=== PATIENT | male | born 1950 | race Caucasian/White ===

== ENCOUNTER 2018-10-03 07:58 | Observation (INO) | payer MEDICARE, BC ==
--- NOTE | 2018-09-21 13:07 | HP ---
Amended report to enter cosigning physician. PREOPERATIVE HISTORY AND PHYSICAL EXAMINATION: DATE OF ADMISSION/SURGERY: 10/03/18 ATTENDING PHYSICIAN: Dr. Rhina Lowe* (dictated by LEIGHTON Amezcua). CHIEF COMPLAINT: Left knee pain. SURGERY: Left total knee arthroplasty. HISTORY OF PRESENT ILLNESS: Mr. Baum is a 68-year-old male with complaints of left knee pain. His plain films revealed significant osteoarthritis. He has failed conservative management and elected to proceed with left total knee arthroplasty on 10/03/[address] Lowe. PAST MEDICAL HISTORY: Significant for diabetes, hypertension, heart disease, hypercholesterolemia, osteoarthritis, sciatica, chronic back pain, and fibromyalgia. PAST SURGICAL HISTORY: He has had bilateral rotator cuff surgery, bilateral knee arthroscopy, right total knee arthroplasty in May [address] Doshi, prostate surgery, and cervical diskectomy infusion at [facility]. MEDICATIONS: 1. Cholecalciferol 1000 units daily. 2. Citalopram 20 mg p.o. daily. 3. Clopidogrel bisulfate 75 mg p.o. daily. 4. Amlodipine 10 mg p.o. daily. 5. Multivitamin daily. 6. Fenofibrate 160 mg p.o. daily. 7. Finasteride 5 mg p.o. daily. 8. Furosemide 40 mg p.o. every day. 9. Isosorbide ER 30 mg 1 p.o. daily. 10. Lisinopril 40 mg p.o. daily. 11. Metoprolol 25 mg p.o. daily. 12. Norvasc 5 mg daily. 13. Omeprazole 40 mg daily. 14. Pentoxifylline ER 400 mg 1 p.o. q.8 hours. 15. Pregabalin 100 mg tablets t.i.d. 16. Calcium tablet 10 mg p.o. q.h.s. 17. Soya protein shake daily. 18. Spironolactone 25 mg p.o. daily. 19. Tramadol ER daily. 20. Vitamin C 500 mg p.o. daily. ALLERGIES: LATEX and ADHESIVE TAPE. FAMILY HISTORY: Brother with a history of prostate cancer and palate oral cancer. Father with a history of prostate cancer and diabetes. Mother with a history of brain tumor. SOCIAL HISTORY: The patient lives with his . 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 He does not use tobacco or recreational drugs. He minimally drinks alcohol. PHYSICAL EXAMINATION GENERAL: He is alert and oriented x2 in no acute distress, pleasant and cooperative. VITAL SIGNS: He is 5 feet 9 inches tall, weight 216, pulse 52, BP 124/68. HEENT: PERRLA. LUNGS: Clear to auscultation without wheeze. HEART: Regular rate and rhythm. No murmur auscultated. ABDOMEN: Nontender and soft. Normoactive bowel sounds x4. MUSCULOSKELETAL: The left knee reveals the skin to be intact. There are no open lesions or excoriations. He walks with a mild antalgic gait. Range of motion 10 degrees to 120 degrees flexion. He has 5/5 ankle dorsiflexion. He has full sensation. There is no varus or valgus instability. His sensation is intact distally. ASSESSMENT AND PLAN: Mr. Baum is a 68-year-old male with advanced osteoarthritis of the left knee. He has failed conservative management and elected to proceed with surgical intervention. He is scheduled for surgery with Dr. Lowe on 10/03/18. Risks and benefits have been discussed by Dr. Lowe today and all of his questions were answered. He will follow up with Dr. Lowe roughly 2 weeks after surgery. LEIGHTON AMEZCUA [id number]/CPS #: [id number] MTDD
[~2018-10-03 07:58] MED LIST: Buffered Lidocaine 1% SYRIN* 1 ML/SYRINGE INTRADERM ONE; Lactated Ringers 1000 ML Bag* 1,000 ML IV SCH
--- OUTSIDE RECORDS SUMMARY | 2018-10-03 08:03 | XMS REPORT | Continuity of Care Document ---
:1950 External Reference #:[id number] Author Name LEIGHTON Patterson Address [address] , [place] [address] Care Team Providers Name Role Phone Bob Henry MD Primary Care Physician Unavailable Payers Date Identification Numbers Payment Provider Subscriber Policy Number: [id number] Medicare Leo Baum PayID: [id number] [address] [place] [address] Policy Number: [id number] [facility] Leo Baum PayID: [id number] [address] [place] [address] Problems Active Problems Provider Date Arthroplasty of knee Rhina Lowe M.D. Onset: 08/30/2018 Localized, primary osteoarthritis Rhina Lowe M.D. Onset: 08/30/2018 Family History Date Family Member(s) Observation Comments General Diabetes General Heart Disease General Hypertension General Cancer Social History Type Date Description Comments Sex Unknown Lives With Spouse Occupation Retired ETOH Use Occasionally consumes alcohol Tobacco Use Start: Unknown Patient has never smoked Smoking Status Reviewed: 08/30/18 Patient has never smoked Exercise Type/Frequency Exercises sporadically Allergies, Adverse Reactions, Alerts Active Allergies Reaction Severity Comments Date Tape 08/30/2018 Latex 08/30/2018 Medications Active Medications SIG Qnty Indications Ordering Date Provider Vitamin C 1 by mouth every Unknown 500mg Chewtabs day V-Go 20 Kit Unknown Tramadol HCL ER Unknown (Biphasic) 300mg Tablets ER 24HR Spironolactone 1 by mouth every Unknown 25mg Tablets day Soy Protein Shake Unknown Powder Rosuvastatin Calcium take 1 tablet by Unknown 10mg mouth every Tablets evening Pregabalin 100MG Caplets, Unknown Powder Three Times Daily Pentoxifylline ER 1 tab by mouth Unknown 400mg every 8 hours. Tablets ER mdd 3 Omeprazole 1 by mouth every Unknown 40mg Capsules DR day Norvasc 1 by mouth every Unknown 5mg Tablets day Metoprolol Succinate ER 1 by mouth every Unknown 25mg day Tablets ER 24HR Lisinopril 1 by mouth every Unknown 40mg Tablets day Isosorbide Mononitrate 1 by mouth every Unknown ER day 30mg Tablets ER 24HR Insulin Unknown Furosemide 1 by mouth every Unknown 40mg Tablets day Finasteride 1 by mouth every Unknown 5mg Tablets day Fenofibrate 1 by mouth every Unknown 160mg Tablets day Ezetimibe take one tablet Unknown 10mg Tablets daily, use generic Multivitamin Unknown Colesevelam HCL take 3 tablets by Unknown 625mg Tablets mouth twice a day for diabetes control Clopidogrel Bisulfate 1 by mouth every Unknown 75mg day Tablets Citalopram Hydrobromide 1 by mouth every Unknown 20mg day Tablets Cholecalciferol 1000units Unknown Vital Signs Date Vital Result Comment 08/30/2018 11:53am Height 69 inches 5'9" Weight 221.00 lb Heart Rate 60 /min BP Systolic 170 mmHg BP Diastolic 72 mmHg Pain Level 10 BMI (Body Mass Index) 32.6 kg/m2 Results Test Date Facility Test Result H/L Range Note Laboratory test 08/30/2018 [facility] Hemoglobin A1c 8.0 % High 4.0-5.[address] ([facility]co HGB) [place] [address] [phone] Therapeutic target for the treatment of diabetes mellitus patients is <7% HBA1C, and in selective patients <6.0%. Please refer to [place] [employer] diabetic care guidelines for further information. Encounters Type Date Location Provider Dx Diagnosis Office Visit 08/30/2018 [facility] Lowe, M25.561 Pain in right 11:[facility]a [facility] M25.562 Pain in left knee M25.461 Effusion, right knee M25.462 Effusion, left knee M17.12 Unilateral primary osteoarthritis, left knee S83.411A Sprain of medial collateral ligament of right knee, init Z96.651 Presence of right artificial knee joint Plan of Treatment Future Appointment(s):10/03/2018 9:30 am - Aditya Fitzpatrick PA-C at [facility].09/20/2018 11:15 am - Rhina Lowe M.D. at [facility].10/03/2018 9:30 am - LEIGHTON Patterson at [facility].10/03/2018 9:30 am - Rhina Lowe M.D. at [facility].08/30/2018 - Rhina Lowe M.D.M25.561 Pain in right kneeFollow up:Follow up: 7-10 days before [id number] Pain in left kneeM25.461 Effusion, right kneeM25.462 Effusion, left kneeM17.12 Unilateral primary osteoarthritis, left kneeS83.411A Sprain of medial collateral ligament of right knee, ogwqbrmI17.651 Presence of right artificial knee joint
--- OUTSIDE RECORDS SUMMARY | 2018-10-03 08:03 | XMS REPORT | Continuity of Care Document ---
:1950 External Reference #:[id number] Author Name LEIGHTON Patterson Address [address] , [place] [address] Care Team Providers Name Role Phone Bob Henry MD Primary Care Physician Unavailable Payers Date Identification Numbers Payment Provider Subscriber Policy Number: [id number] Medicare Leo Baum PayID: [id number] [address] [place] [address] Policy Number: [id number] [facility] Leo Baum PayID: [id number] [address] [place] [address] Problems Active Problems Provider Date Arthroplasty of [...] Result H/L Range Note Laboratory test 08/30/2018 [facility] Hemoglobin A1c 8.0 % High 4.0-5.[address] (Glyco HGB) [place] [address] [phone] Therapeutic target for the treatment of diabetes mellitus patients is <7% HBA1C, and in selective patients <6.0%. Please refer to [place] Diabetes Association diabetic care guidelines for further [...] Aditya Fitzpatrick PA-C at [facility].09/20/2018 11:15 am - Rhina Lowe M.D. at [facility].10/03/2018 9:30 am - LEIGHTON Patterson at [facility].10/03/2018 9:30 am - Rhina Lowe M.D. at [facility].08/30/2018 - Rhina Lowe M.D.M25.561 Pain in right kneeFollow up:Follow up: 7-10 days before eorikszG02.562 Pain in left kneeM25.461 Effusion, right kneeM25.462 Effusion, left kneeM17.12 Unilateral primary osteoarthritis, left kneeS83.411A Sprain of medial collateral ligament of right knee, isrkkwvV00.651 Presence of right artificial knee joint
--- OUTSIDE RECORDS SUMMARY | 2018-10-03 08:03 | XMS REPORT | Continuity of Care Document ---
:1950 External Reference #:[id number] Author Name Maya Jo Care Team Providers Name Role Phone Bob Henry MD Primary Care Physician Unavailable Payers Date Identification Numbers Payment Provider Subscriber Policy Number: [id number] Medicare Leo Baum PayID: [id number] [address] [place] [address] Policy Number: [id number] [facility] Leo Baum PayID: [id number] [address] [place] [address] Problems Active Problems Provider Date Arthroplasty of [...] Patient has never smoked Smoking Status Reviewed: 09/20/18 Patient has never smoked Exercise Type/Frequency Exercises [...] Unknown Vital Signs Date Vital Result Comment 09/20/2018 11:04am Height 69 inches 5'9" Weight 216.00 lb Heart Rate 52 /min BP Systolic 124 mmHg BP Diastolic 68 mmHg BMI (Body Mass Index) 31.9 kg/m2 08/30/2018 11:53am Height 69 inches 5'9" Weight 221.00 lb Heart Rate 60 /min BP Systolic 170 mmHg BP Diastolic 72 mmHg Pain Level 10 BMI (Body Mass Index) 32.6 kg/m2 Results Test Date Facility Test Result H/L Range Note Laboratory test 08/30/2018 [facility] Hemoglobin A1c 8.0 % High 4.0-5.6 [address] (Glyco HGB) [place] [address] [phone] Therapeutic target for the treatment of diabetes mellitus patients is <7% HBA1C, and in selective patients <6.0%. Please refer to [place] Diabetes [employer] diabetic care guidelines for further information. Encounters Type Date Location Provider Dx Diagnosis Office Visit 08/30/2018 [facility] Rhina Mynor, M25.561 Pain in right 11:00a [facility] knee M25.562 Pain in left knee M25.461 Effusion, right knee M25.462 Effusion, left knee M17.12 Unilateral primary osteoarthritis, left knee S83.411A Sprain of medial collateral ligament of right knee, init Z96.651 Presence of right artificial knee joint Plan of Treatment Future Appointment(s):10/16/2018 1:15 pm - Rhina Lowe M.D. at [facility]10/03/2018 11:30 am - Aditya Fitzpatrick PA-C at [facility]/03/2018 11:30 am - LEIGHTON Patterson at [facility]/2018 11:30 am - Rhina Lowe M.D. at [facility]
[2018-10-03] MEDS ORDERED: ceFAZolin 2 GM PREMIX in ORs 2 GM/50 ML BAG IVPB ONE (08:13)
[2018-10-03] MEDS ORDERED: Buffered Lidocaine 1% SYRIN* 1 ML/SYRINGE INTRADERM ONE (08:13)
[2018-10-03] MEDS ORDERED: Insulin REGULAR(*) 1 UNITS UNIT ONE ×3 (08:51→11:06)
[2018-10-03] MEDS ORDERED: Propofol* 10 MG/ML 20 ML BTL ONE ×2 (09:00→12:57)
[2018-10-03] MEDS ORDERED: Lidocaine 2% PF * 5 ML VIAL ONE (09:00)
[2018-10-03] MEDS ORDERED: Midazolam* 1 MG/ML 2 ML VIAL (2 MG) ONE (09:01)
[2018-10-03] MEDS ORDERED: fentaNYL* 50 MCG/ML 2 ML VIAL (100 MCG VIAL) ONE (09:01)
[2018-10-03] MEDS ORDERED: Bupivacaine 0.5% SDV PF* 30ML VIAL ONE (09:01)
[2018-10-03] MEDS ORDERED: Dexmedetomidine* 200 MCG/2 ML 2 ML VIAL ONE (09:02)
[2018-10-03] MEDS ORDERED: KETAMINE HCL* 50 MG/ML 10 ML VIAL ONE (09:02)
[2018-10-03] MEDS ORDERED: Propofol* 500 MG/50 ML BTL ONE (09:02)
[2018-10-03] MEDS ORDERED: ROPIVACAINE 5 MG/ML 30 ML BTL (0.5%) ONE ×2 (09:07→10:49)
[2018-10-03] MEDS ORDERED: Dexamethasone IV* 4 MG/ML 1 ML (4 MG) ONE (12:07)
[2018-10-03] MEDS ORDERED: EPHEDrine (Pressors)* 50 MG/ML VIAL ONE (12:12)
[2018-10-03] MEDS ORDERED: Labetalol IV* 5 MG/ML 20 ML VIAL ONE ×2 (13:02→16:38)
[2018-10-03] MEDS ORDERED: Naloxone* 0.4 MG/ML 1 ML VIAL IV PRN (13:24)
[2018-10-03] MEDS ORDERED: Ondansetron INJ* 2 MG/ML VIAL IV PRN ×2 (13:24→13:53)
[2018-10-03] MEDS ORDERED: Acetaminophen IV 1GM/100ML * 1,000 MG/100 ML VIAL IVPB ONE (13:24)
[2018-10-03] MEDS ORDERED: Ketorolac INJ* 30 MG/ML 1 ML VIAL IV PRN (13:24)
[2018-10-03] MEDS ORDERED: traMADol TAB* 50 MG PO PRN (13:53)
[2018-10-03] MEDS ORDERED: Ondansetron TAB* 4 MG PO PRN (13:53)
[2018-10-03] MEDS ORDERED: oxyCODONE/Acetamin 5/325 MG* TAB PO PRN (13:53)
[2018-10-03] MEDS ORDERED: Bisacodyl SUPP* 10 MG SUPP PR PRN (13:53)
[2018-10-03] MEDS ORDERED: Polyethylene Glycol 3350* 17 GM PACKET PO PRN (13:53)
[2018-10-03] MEDS ORDERED: diPHENhydraMINE IV* 50 MG/ML 1 ml VIAL (BENADRYL) IV PRN (13:53)
[2018-10-03] MEDS ORDERED: Cyclobenzaprine TAB* 10 MG PO PRN (13:53)
[2018-10-03] MEDS ORDERED: Magnesium Hydroxide LIQ* 30 ML UDC PO PRN (13:53)
[2018-10-03] MEDS ORDERED: Acetaminophen TAB* 325 MG PO SCH (14:00)
[2018-10-03] MEDS ORDERED: Acetaminophen IV 1GM/100ML * 100 ML ONE (14:17)
[2018-10-03] MEDS ORDERED: Ketorolac INJ* 30 MG/ML 1 ML VIAL ONE (14:23)
[2018-10-03] MEDS ORDERED: HYDROmorphone INJ1* 1 MG/ML SYRINGE ONE ×2 (14:23→14:59)
[2018-10-03] MEDS: HYDROmorphone INJ1* 1 MG/ML SYRINGE IV PRN ×5 (14:24→14:49)
[2018-10-03] MEDS ORDERED: Lisinopril TAB* 10 MG PO ONE (15:15)
[2018-10-03] MEDS ORDERED: amLODIPine TAB* 5 MG PO ONE (15:15)
--- NOTE | 2018-10-03 15:56 | OP ---
Operative Report - Blank - Operative Report Date of Operation: 10/03/18 Note: IZA HERNÁNDEZ 1950 Date of Surgery: 10/03/18 Rhina Lowe MD Pipe Jeeper: Latisha MANZANARES did help throughout the procedure with preparation of the knee, wound retraction, manipulation of the knee, and wound closure. Anesthesiologist: Morteza El MD Anesthesia Type: Spinal Preoperative Diagnosis: Left severe degenerative osteoarthritis of the knee Postoperative Diagnosis: As above Procedure Performed: Left Total Knee Arthroplasty Tourniquet time: 54 minutes Complications: None Specimen: Bone and cartilage from the left knee joint sent to pathology. Hardware Used: Cemented Hernandez and Nephew total knee hardware was used - For the femur a size 6 left legion posterior stabilized femoral component, for the tibia a size 5 allie II tibial baseplate, for the insert a size 9mm 5-6 posterior stabilized articular polyethylene insert, and for the patella a size 32 3-peg all poly patella. Brief History/Indication: IZA HERNÁNDEZ was known in clinic and had a history of severe left knee pain and swelling. He failed conservative treatment with anti-inflammatories, pain pills, intra-articular injections and physical therapy. He elected to undergo left total knee arthroplasty due to continued pain and decreased quality of life. Radiographs showed severe end stage osteoarthritis of the knee with bone on bone contact. Informed consent was obtained from the patient. He understood the risks of surgery included but were not limited to: bleeding, infection, damage to nearby structures, intraoperative fracture, nerve palsy, failure of the hardware, early loosening, knee stiffness or loss of motion, anesthesia complications, stroke, heart attack , blood clot and . He wished to proceed. Intra-Operative Findings: Intraoperatively the patient was noted to have severe loss of cartilage in all 3 compartments of the knee. Description of the Procedure: IZA HERNÁNDEZ was identified in the preanesthesia unit. His left knee was marked as the correct operative side. Informed consent was signed and placed in the chart. The patient was taken to the operating room and placed under anesthesia without complication. A medina catheter was placed. A tourniquet was placed on the left thigh. The left lower extremity was prepped and draped in the usual sterile fashion. Preoperative time-out was made to correctly identify the patient, side and site. Appropriate intraoperative antibiotics were given within one hour of incision. Tourniquet was inflated. A midline incision was made and carried sharply down to the extensor mechanism. A new 10 blade was used to make a standard medial parapatellar arthrotomy. The patella was subluxed laterally. Electrocautery was used to dissect soft tissue off the superomedial tibia to the midsagittal plane. The knee was flexed up. The anterior horn of the lateral meniscus and the ACL were sharply incised. A drill was used to enter the distal femur. The intramedullary distal femoral cutting guide was pinned on the distal femur. The oscillating saw was used to make the distal femoral cut. The external rotation guide was pinned on the distal femur and the distal femur was sized to a size 6. The size 6 multi-cutting jig was pinned on the distal femur. The oscillating saw was used to make the appropriate 4 chamfer cuts. Next the PCL was completely released. The extramedullary tibial cutting guide was pinned on the proximal tibia and the oscillating saw was used to make the proximal tibial cut perpendicular to the mechanical axis of the tibia. The bone was carefully removed. The knee was brought out into full extension. The spacer block was placed and had excellent fit with the knee in full extension. The medial and lateral ligaments were well balanced. The flexion and extension gaps were well balanced. The knee was flexed up. Lamina reservations agent was placed both medially and laterally. Any remaining meniscus was removed with electrocautery. Curved osteotome was used to remove any posterior osteophytes. The tibial tray and drop danilo were placed and confirmed a satisfactory tibial cut. The size 6 left femoral trial was impacted onto the distal femur. This trial had excellent fit and stability. The box for the posterior stabilized implant was prepared using a box cut osteotome and a reamer. Next a tibial tray trial and 9 mm insert trial was placed. The knee was taken through a range of motion and had full extension to 130 degrees of flexion. Patellofemoral tracking was satisfactory. The patella was inverted and sized to a size 32. Three peg holes were drilled through the size 32 drill guide. The trial patella was placed and the knee was taken through a range of motion. There was satisfactory patellofemoral tracking. All trials were removed. The tibia was subluxed anteriorly and sized to a size 5. The proximal tibial was prepared with a size 5 keel punch. All bony cut surfaces were irrigated with sterile saline and dried. Final implants were cemented into place starting with the tibia, followed by the femur, and last the patella. A 9 mm insert trial was placed and the knee was brought into full extension. Tourniquet was turned down and the knee was copiously irrigated with sterile saline. Electrocautery was used to obtain meticulous hemostasis. Once the cement had fully cured, the insert trial was removed. Any excess cement was removed from around the hardware and capsule. Final insert chosen was a 9 mm posterior stabilized Allie II articular insert size 5-6. Stability of the insert was checked and noted to be stable. The extensor mechanism was closed using number 1 vicryls. The rest of the incision was closed in a layered fashion using 0 and 2-0 vicryls. The skin was closed using 3-0 nylon suture. Sterile xeroform, 4x4s and webril were used to cover the incision. Magen wrap and cold pack were used to cover the dressings. The patients anesthesia was reversed without difficulty. He was taken to the PACU in stable condition. Intended weight-bearing will be as tolerated.
[2018-10-03] MEDS ORDERED: oxyCODONE/Acetamin 5/325 MG* TAB ONE (17:41)
[2018-10-03] MEDS: Lactated Ringers 1000 ML Bag* 1,000 ML IV SCH (17:50)
[2018-10-03] MEDS: oxyCODONE/Acetamin 5/325 MG* TAB PO PRN (17:53)
[2018-10-03] MEDS ORDERED: Dextrose 50% Syringe 50 ML* 25 GM/50 ML SYRINGE IV PUSH PRN (17:57)
[2018-10-03] MEDS ORDERED: Insulin GLARGINE(*) 1 UNITS UNIT SUBCUT SCH ×2 (18:00→23:51)
[2018-10-03] MEDS ORDERED: Insulin GLARGINE(*) 1 UNITS UNIT ONE (18:20)
[2018-10-03] MEDS: ceFAZolin 1 GM ADVAN(*) 1 GM in NS 0.9% 50 ML* 50 ML IVPB SCH (19:13)
--- NOTE | 2018-10-03 19:52 | CONS ---
CONSULTATION REPORT: DATE OF CONSULT: 10/03/18 CONSULTING SERVICE: Orthopedic Surgery.* CHIEF COMPLAINT: Left knee pain. HISTORY OF PRESENT ILLNESS: This is a 68-year-old man with history of end- stage osteoarthritis of his left knee who underwent an elective left total knee arthroplasty today with Dr. Lowe. We were asked to consult for diabetes, hypertension, coronary disease, chronic kidney disease, and obstructive sleep apnea. Leo feels well postoperatively. He has some pain in the left knee, but denies chest pain, shortness of breath, palpitations, nausea, vomiting, constipation, or diarrhea. Regarding his diabetes, he uses a V-go insulin delivery system. Unfortunately, however, he follows with [facility] and does not know anything about how much insulin he uses in a day. He cannot recall the basal rate, the mealtime bolus, or his usual daily requirements. PAST MEDICAL HISTORY: Extensive coronary artery disease, he has stents to the mid LAD and RCA, the mid to distal RCA, and the distal RCA; hypertension; hyperlipidemia; fibromyalgia; and diabetic nephropathy. PAST SURGICAL HISTORY: Rotator cuff surgery, right knee arthroscopy and right knee arthroplasty, and cervical diskectomy. HOME MEDICATIONS: 1. Cholecalciferol 1000 units daily. 2. Citalopram 20 mg daily. 3. Plavix 75 mg daily. 4. Norvasc 10 mg daily. 5. Multivitamin daily. 6. Fenofibrate 160 mg daily. 7. Finasteride 5 mg daily. 8. Lasix 40 mg daily. 9. Imdur 30 mg daily. 10. Lisinopril 40 mg daily. 11. Metoprolol 25 mg daily. 12. Omeprazole 40 mg daily. 13. Pentoxifylline 400 mg q.8. 14. Lyrica 100 mg t.i.d. 15. Calcium 10 q.h.s. 16. Spironolactone 25 mg daily. 17. Tramadol daily as needed. 18. Vitamin C daily. 19. He uses Humulin U-500 via a V-Go system. He does not know the dose. ALLERGIES: LATEX. FAMILY HISTORY: His brother has prostate cancer, his dad has prostate cancer, and his mom has history of a brain tumor. SOCIAL HISTORY: He occasionally drinks beer. He does not smoke tobacco. REVIEW OF SYSTEMS: As per the HPI. Remainder of the 14-point review of systems is negative. PHYSICAL EXAM: Temperature 97.4, heart rate 68, respiratory rate 14, pulse ox 95% on room air, blood pressure 158/46. General: Alert, well-appearing man, who appears his stated age, in no distress. HEENT: Pupils are 3 mm bilaterally and reactive to light. Oral mucosa is dry. Neck: No JVP. No cervical adenopathy. Chest: he is in a regular rate and rhythm with a systolic murmur that is heard throughout and worse at the left upper sternal border. He has a continuous blood glucose monitor on his chest wall. He has an old anterior neck incision. His lungs are clear bilaterally. Abdomen is obese, soft, nontender, nondistended. No guarding or rebound. No CVA tenderness. Extremities: His left knee is in a Cryo unit. His distal sensation is intact. His DP and PT pulses are 2+ bilaterally. LABORATORY DATA: A oepoq-ch-lbra fingerstick was 299 this morning. ASSESSMENT AND PLAN: This is a 68-year-old man with history of severe coronary artery disease and type 2 diabetes, on Humulin U-500 via a V-Go pump, who presented to PACU today for an elective left TKA and we were asked to consult for medical management. 1. Type 2 diabetes. Unfortunately, he uses a U-500 Humulin insulin, but he does not know the rate that his V-Go delivers the insulin nor his basal dose nor his total daily dose nor his mealtime dose, so I am going to give him weight -based Lantus tonight and add fingersticks and lispro coverage. He has a continuous blood glucose monitor on his chest; will still use fingersticks for monitoring. 2. Coronary artery disease. Continue Plavix, metoprolol. I note that he is not on a statin and I cannot see documentation why from his cardiology notes. I will discuss this with him tomorrow. Continue Zetia and fenofibrate. This combination suggests he may have been statin intolerant. 3. Diabetic nephropathy. He does not know his baseline creatinine and we have no records. We will order morning labs. 4. Hypertension. His blood pressure is not at goal, but it was when he arrived to the hospital today, so I suspect this may be pain related. ICU has continued his home antihypertensives and I agree with this. 5. Postop day #0 left TKA. Please avoid NSAIDs given his renal dysfunction. Continue Percocet as needed and tramadol. His Macias catheter is out. 6. DVT prophylaxis. Eliquis 2.5mg BID. [id number]/[facility] #: [id number] MTDD
[2018-10-03] MEDS ORDERED: Insulin LISPRO* 1 UNITS UNIT SUBCUT ONE ×2 (21:27→23:49)
[2018-10-03] MEDS: Insulin LISPRO* 1 UNITS UNIT SUBCUT SCH (21:32)
[2018-10-03] MEDS: oxyCODONE TAB* 5 MG TAB PO PRN (21:38)
[2018-10-03] MEDS: Pregabalin CAP(*) 100 MG PO SCH (21:39)
[2018-10-03] MEDS: Docusate CAP* 100 MG PO SCH (21:39)
[2018-10-03] MEDS: Magnesium Hydroxide LIQ* 30 ML UDC PO SCH (21:39)
[2018-10-03] MEDS: Pantoprazole TAB * 40 MG TAB PO SCH (21:39)
[2018-10-03] MEDS: Atorvastatin* 20 MG TAB PO SCH (21:39)
[2018-10-03] MEDS: Terazosin CAP* 1 MG PO SCH (21:40)
[2018-10-03] MEDS: COLESEVELAM 625 MG PO SCH (21:43)
[2018-10-03] MEDS: Acetaminophen TAB* 325 MG PO SCH (21:44)
[2018-10-04] MEDS: oxyCODONE/Acetamin 5/325 MG* TAB PO PRN ×5 (00:11→21:08)
[2018-10-04] MEDS: ceFAZolin 1 GM ADVAN(*) 1 GM in NS 0.9% 50 ML* 50 ML IVPB SCH ×2 (03:29→11:24)
[2018-10-04] MEDS: oxyCODONE TAB* 5 MG TAB PO PRN ×4 (03:29→17:44)
[2018-10-04] MEDS: Lactated Ringers 1000 ML Bag* 1,000 ML IV SCH (03:30)
[2018-10-04] MEDS: Acetaminophen TAB* 325 MG PO SCH ×3 (05:48→21:11)
[2018-10-04 06:33] LABS: Hematocrit 31 % (42-52); Hemoglobin 10.7 g/dL (14.0-18.0); Mean Platelet Volume 11.4 fL (7.4-10.4); Platelet Count 193 10^3/uL (150-450)
[2018-10-04 06:49] LABS: BUN/Creatinine Ratio 26.6 (8-20); Calcium 8.6 mg/dL (8.6-10.3); EGFR African American 61.3 (>60); EGFR Non-African American 50.7 (>60); Potassium 4.8 mmol/L (3.5-5.0)
--- NOTE | 2018-10-04 07:52 | PN ---
Subjective Date of Service: 10/04/18 Interval History: Leo had uncontrolled blood sugars overnight. He feels good this morning. Pain is controlled, he had a small bowel movement last night, is eating breakfast. Objective Active Medications: Acetaminophen (Tylenol Tab*) 975 mg PO 0630,1430,2230 REPLACED BY [facility] Last Admin: 10/04/18 05:48 Dose: Not Given Amlodipine Besylate (Norvasc Tab*) 10 mg PO QAM REPLACED BY [facility] Apixaban (Eliquis*) 2.5 mg PO BID REPLACED BY [facility] Atorvastatin Calcium (Lipitor*) 20 mg PO BEDTIME REPLACED BY [facility]; Protocol Last Admin: 10/03/18 21:39 Dose: 20 mg Bisacodyl (Dulcolax Supp*) 10 mg [place] DAILY PRN PRN Reason: constipation Citalopram Hydrobromide (Celexa Tab*) 20 mg PO QAM REPLACED BY [facility] Clopidogrel Bisulfate (Plavix Tab*) 75 mg PO QAM REPLACED BY [facility] Colesevelam HCl (Welchol(Nf)) 1,875 mg PO BID REPLACED BY [facility] Last Admin: 10/03/18 21:43 Dose: Not Given Cyclobenzaprine HCl (Flexeril Tab*) 10 mg PO TID PRN PRN Reason: SPASMS Dextrose (D50w Syringe 50 Ml*) 12.5 gm IV PUSH .FOR FS < 60 - SS PRN PRN Reason: FS < 60 Diphenhydramine HCl (Benadryl Iv*) 12.5 mg IV Q6H PRN PRN Reason: PRURITIS Docusate Sodium (Colace Cap*) 100 mg PO BID REPLACED BY [facility] Last Admin: 10/03/18 21:39 Dose: 100 mg Ezetimibe (Zetia Tab*) 10 mg PO QAM REPLACED BY [facility] Fenofibrate (Tricor 160 Mg) 160 mg PO BEDTIME REPLACED BY [facility]; Protocol Last Admin: 10/03/18 21:43 Dose: 160 mg Finasteride (Proscar Tab*) 5 mg PO QAM REPLACED BY [facility] Furosemide (Lasix Tab*) 60 mg PO QAM REPLACED BY [facility] Cefazolin Sodium 1 gm/ Sodium (Chloride) 50 mls @ 200 mls/hr IVPB Q8H REPLACED BY [facility] Stop: 10/04/18 11:44 Last Admin: 10/04/18 03:29 Dose: 200 mls/hr Lactated Ringer's (Lactated Ringers 1000 Ml Bag*) 1,000 mls @ 100 mls/hr IV PER RATE REPLACED BY [facility] Last Admin: 10/04/18 03:30 Dose: 100 mls/hr Insulin Glargine (Lantus(*)) 50 units SUBCUT Q24HR@1800 REPLACED BY [facility] Last Admin: 10/04/18 00:08 Dose: 50 units Insulin Human Lispro (Humalog*) 0 units SUBCUT ACHS REPLACED BY [facility]; Protocol Last Admin: 10/03/18 21:32 Dose: Not Given Isosorbide Mononitrate (Imdur Er Tab*) 60 mg PO QAM REPLACED BY [facility] Lactulose (Lactulose*) 30 ml PO Q6H PRN PRN Reason: constipation Lisinopril (Prinivil Tab*) 40 mg PO QAM REPLACED BY [facility] Magnesium Hydroxide (Milk Of Magnesia Liq*) 30 ml PO BID REPLACED BY [facility] Last Admin: 10/03/18 21:39 Dose: Not Given Magnesium Hydroxide (Milk Of Magnesia Liq*) 30 ml PO Q6H PRN PRN Reason: constipation Metoprolol Succinate (Toprol Xl Tab*) 25 mg PO QAM REPLACED BY [facility] Morphine Sulfate (Morphine Inj (Syringe))*) 2 mg IV Q2H PRN PRN Reason: PAIN Ondansetron HCl (Zofran Inj*) 4 mg IV Q6H PRN PRN Reason: nausea Ondansetron HCl (Zofran Tab*) 4 mg PO Q6H PRN PRN Reason: NAUSEA Oxycodone HCl (Roxycodone Tab*) 10 mg PO Q4H PRN PRN Reason: SEVERE PAIN Last Admin: 10/04/18 03:29 Dose: 10 mg Oxycodone/Acetaminophen (Percocet 5/325 Tab*) 1 tab PO Q4H PRN PRN Reason: PAIN Oxycodone/Acetaminophen (Percocet 5/325 Tab*) 2 tab PO Q4H PRN PRN Reason: PAIN Last Admin: 10/04/18 05:43 Dose: 2 tab Pantoprazole Sodium (Protonix Tab*) 40 mg PO BEDTIME REPLACED BY [facility] Last Admin: 10/03/18 21:39 Dose: 40 mg Pentoxifylline (Trental Cr Tab*) 400 mg PO QAM REPLACED BY [facility] Polyethylene Glycol/Electrolytes (Miralax*) 17 gm PO DAILY PRN PRN Reason: Constipation Pregabalin (Lyrica Cap(*)) 100 mg PO BID REPLACED BY [facility] Last Admin: 10/03/18 21:39 Dose: 100 mg Terazosin HCl (Hytrin Cap*) 1 mg PO BEDTIME REPLACED BY [facility] Last Admin: 10/03/18 21:40 Dose: 1 mg Tramadol HCl (Ultram*) 50 mg PO Q6H PRN PRN Reason: PAIN Vital Signs - 8 hr 10/04/18 10/04/18 10/04/18 00:11 03:26 03:29 Temperature 98.0 F Pulse Rate 69 Respiratory 20 16 18 Rate Blood Pressure 137/44 (mmHg) O2 Sat by Pulse 98 Oximetry 10/04/18 05:43 Temperature Pulse Rate Respiratory 18 Rate Blood Pressure (mmHg) O2 Sat by Pulse Oximetry Oxygen Devices in Use Now: None Appearance: alert, well appearing Eyes: No Scleral Icterus Ears/Nose/Mouth/Throat: - - dry Neck: NL Appearance and Movements; NL JVP Respiratory: Symmetrical Chest Expansion and Respiratory Effort Cardiovascular: - - systolic murmur 1/6 LUSB Abdominal: NL Sounds; No Tenderness; No Distention Lymphatic: No Cervical Adenopathy Extremities: - - cryo unit left leg, sensation in tact, DT/PT pulses 2+ Skin: No Rash or Ulcers Neurological: Alert and Oriented x 3 Result Diagrams: 10/04/18 06:03 10/04/18 06:03 Assess/Plan/Problems-Billing Assessment: 68 yo man with history of diabetes, CAD, and CKD admitted for elective TKA - Patient Problems (1) Hyperglycemia Current Visit: Yes Status: Acute Code(s): R73.9 - HYPERGLYCEMIA, UNSPECIFIED SNOMED Code(s): 77953216 Comment: due to uncontrolled DM2 uses U-500 insulin at home and his dose is unknown, so weight based lantus was trialed last night with inadequate response will give NPH 30U (0.3U/kg) today with hopes he can go home tonight and go back to his V-go system (2) Coronary artery disease Current Visit: Yes Status: Acute Code(s): I25.10 - ATHSCL HEART DISEASE OF [place] CORONARY ARTERY W/O ANG PCTRS SNOMED Code(s): 94088387 Comment: continue plavix, BB, statin (3) HTN (hypertension) Current Visit: Yes Status: Acute Code(s): I10 - ESSENTIAL (PRIMARY) HYPERTENSION SNOMED Code(s): 35967859 Comment: at goal on home antihypertensives (4) Diabetic nephropathy Current Visit: Yes Status: Acute (5) Status post total knee replacement Current Visit: Yes Status: Acute Code(s): Z96.659 - PRESENCE OF UNSPECIFIED ARTIFICIAL KNEE JOINT SNOMED Code(s): 6548388831519 Comment: doing well, plan for PT today, pain controlled, [facility] out (6) DVT prophylaxis Current Visit: Yes Status: Acute Code(s): Z29.9 - ENCOUNTER FOR PROPHYLACTIC MEASURES, UNSPECIFIED SNOMED Code(s): 294493719 Comment: edgar
--- NOTE | 2018-10-04 08:12 | CONSULT ---
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 He is doing well overall and is eligible for early discharge. His insulin requirement is at least 120 units/day at home, but probably less than this in the post-op setting. IV insulin is usually indicated in patients with high-insulin requirements experiencing of stress hyperglycemia >300mg/dL. I recommend a trial of SQ insulin as below; if BG>350mg/dL this afternoon, then consider transfer to ICU for insulin drip, which can then be transitioned back to V-Go 20 insulin pump when available. PLAN: - START regular insulin scheduled 20 units TID-AC - hold if BG<90 or NPO - START regular insulin sliding scale 5 units per 50mg/dL for BG>200mg/dL - D/C lispro insulin - if patient remains hospitalized overnight, INCREASE glargine insulin to 70 units Q24h - check fingersticks TID-AC, HS and 3AM SUBJECTIVE: History of Present Illness: 68 yo M with long-standing T2DM, now admitted for elevated LTKA performed on 10/03/[address] Lowe. He was diagnosed with diabetes many years ago and has a history of life-threatening hypoglycemia in ~2013. He has used a CGM since then, which has also helped with glycemic control. For the past several years, he has used concentrated insulin via a spring-loaded V-Go 20 pump device to provide 100 units/day of basal insulin, along with 10-20 units of correction and nutritional insulin with most meals. He does not typically bolus insulin except for BG>200 and/or large meals. He has not experienced low recently, but endorses hyperglycemia in the immediate pre- operative period due to discontinuation of V-Go device. 12 system review is otherwise negative. Past Medical History: 1. T2DM, A1c 8% 2. DL 3. CAD Medications Prior to Admission: Amlodipine Besylate [Norvasc] 10 mg PO QAM 09/20/18 [History Confirmed 10/03/18] Ascorbic Acid TAB* [Vitamin C TAB*] 500 mg PO QAM 09/20/18 [History Confirmed 10/03/18] Cholecalciferol TAB* [Vitamin D TAB*] 1,000 unit PO QAM 09/20/18 [History Confirmed 10/03/18] Citalopram TAB* [CeleXA TAB*] 20 mg PO QAM 09/20/18 [History Confirmed 10/03/18] Clopidogrel TAB* [Plavix TAB*] 75 mg PO QAM 09/20/18 [History Confirmed 10/03/18 ] Colesevelam HCl [Welchol] 3 tab PO BID 09/20/18 [History Confirmed 10/03/18] Ezetimibe TAB* [Zetia TAB*] 10 mg PO QAM 09/20/18 [History Confirmed 10/03/18] Fenofibrate [Tricor 160 MG] 160 mg PO QPM 09/20/18 [History Confirmed 10/03/18] Finasteride TAB* [Proscar TAB*] 5 mg PO QAM 09/20/18 [History Confirmed 10/03/18 ] Furosemide TAB* [Lasix TAB*] 1.5 tab PO QAM 09/20/18 [History Confirmed 10/03/18 ] Insulin REGULAR(*) 09/20/18 [History] Isosorbide Mononitrate ER TAB* [Imdur ER TAB*] 60 mg PO QAM 09/20/18 [History Confirmed 10/03/18] Lisinopril 40 mg PO QAM 09/20/18 [History Confirmed 10/03/18] Metoprolol Succinate XL TAB* [Toprol XL TAB*] 25 mg PO QAM 09/20/18 [History Confirmed 10/03/18] Multivitamin [Multiple Vitamins] 1 tab PO QAM 09/20/18 [History Confirmed ] Omeprazole 40 mg PO QPM 09/20/18 [History Confirmed 10/03/18] Pentoxifylline CR TAB* [TRENtal CR TAB*] 400 mg PO QAM 09/20/18 [History Confirmed 10/03/18] Pregabalin CAP(*) [Lyrica CAP(*)] 100 mg PO BID 09/20/18 [History Confirmed ] Rosuvastatin Calcium [Crestor] 10 mg PO QPM 09/20/18 [History Confirmed 10/03/18 ] Spironolactone TAB* [Aldactone TAB*] 25 mg PO QAM 09/20/18 [History Confirmed ] Sub-Q Insulin Device, 20 Unit [V-Go 20] SUBCUT 09/20/18 [History] Terazosin CAP* [Hytrin CAP*] 1 mg PO BEDTIME 09/20/18 [History Confirmed ] Tramadol HCl [Tramadol HCl ER] 300 mg PO QAM 09/20/18 [History Confirmed ] Ubidecarenone [Coq10] 100 mg PO QAM 09/20/18 [History Confirmed 10/03/18] Inpatient Medications: Acetaminophen (Tylenol Tab*) 975 mg PO 0630,1430,2230 [facility] Last Admin: 10/04/18 05:48 Dose: Not Given Amlodipine Besylate (Norvasc Tab*) 10 mg PO QAM [facility] Apixaban (Eliquis*) 2.5 mg PO BID [facility] Atorvastatin Calcium (Lipitor*) 20 mg PO BEDTIME [facility]; Protocol Last Admin: 10/03/18 21:39 Dose: 20 mg Bisacodyl (Dulcolax Supp*) 10 mg [place] DAILY PRN PRN Reason: constipation Citalopram Hydrobromide (Celexa Tab*) 20 mg PO QAM [facility] Clopidogrel Bisulfate (Plavix Tab*) 75 mg PO QAM [facility] Colesevelam HCl (Welchol(Nf)) 1,875 mg PO BID [facility] Last Admin: 10/03/18 21:43 Dose: Not Given Cyclobenzaprine HCl (Flexeril Tab*) 10 mg PO TID PRN PRN Reason: SPASMS Dextrose (D50w Syringe 50 Ml*) 12.5 gm IV PUSH .FOR FS < 60 - SS PRN PRN Reason: FS < 60 Diphenhydramine HCl (Benadryl Iv*) 12.5 mg IV Q6H PRN PRN Reason: PRURITIS Docusate Sodium (Colace Cap*) 100 mg PO BID [facility] Last Admin: 10/03/18 21:39 Dose: 100 mg Ezetimibe (Zetia Tab*) 10 mg PO QAM [facility] Fenofibrate (Tricor 160 Mg) 160 mg PO BEDTIME [facility]; Protocol Last Admin: 10/03/18 21:43 Dose: 160 mg Finasteride (Proscar Tab*) 5 mg PO QAM [facility] Furosemide (Lasix Tab*) 60 mg PO QAM [facility] Cefazolin Sodium 1 gm/ Sodium (Chloride) 50 mls @ 200 mls/hr IVPB Q8H [facility] Stop: 10/04/18 11:44 Last Admin: 10/04/18 03:29 Dose: 200 mls/hr Lactated Ringer's (Lactated Ringers 1000 Ml Bag*) 1,000 mls @ 100 mls/hr IV PER RATE [facility] Last Admin: 10/04/18 03:30 Dose: 100 mls/hr Insulin Glargine (Lantus(*)) 50 units SUBCUT Q24HR@1800 [facility] Last Admin: 10/04/18 00:08 Dose: 50 units Insulin Human Lispro (Humalog*) 0 units SUBCUT ACHS [facility]; Protocol Last Admin: 10/03/18 21:32 Dose: Not Given Isosorbide Mononitrate (Imdur Er Tab*) 60 mg PO QAM [facility] Lactulose (Lactulose*) 30 ml PO Q6H PRN PRN Reason: constipation Lisinopril (Prinivil Tab*) 40 mg PO QAM [facility] Magnesium Hydroxide (Milk Of Magnesia Liq*) 30 ml PO BID [facility] Last Admin: 10/03/18 21:39 Dose: Not Given Magnesium Hydroxide (Milk Of Magnesia Liq*) 30 ml PO Q6H PRN PRN Reason: constipation Metoprolol Succinate (Toprol Xl Tab*) 25 mg PO QAM [facility] Morphine Sulfate (Morphine Inj (Syringe))*) 2 mg IV Q2H PRN PRN Reason: PAIN Ondansetron HCl (Zofran Inj*) 4 mg IV Q6H PRN PRN Reason: nausea Ondansetron HCl (Zofran Tab*) 4 mg PO Q6H PRN PRN Reason: NAUSEA Oxycodone HCl (Roxycodone Tab*) 10 mg PO Q4H PRN PRN Reason: SEVERE PAIN Last Admin: 10/04/18 03:29 Dose: 10 mg Oxycodone/Acetaminophen (Percocet 5/325 Tab*) 1 tab PO Q4H PRN PRN Reason: PAIN Oxycodone/Acetaminophen (Percocet 5/325 Tab*) 2 tab PO Q4H PRN PRN Reason: PAIN Last Admin: 10/04/18 05:43 Dose: 2 tab Pantoprazole Sodium (Protonix Tab*) 40 mg PO BEDTIME [facility] Last Admin: 10/03/18 21:39 Dose: 40 mg Pentoxifylline (Trental Cr Tab*) 400 mg PO QAM [facility] Polyethylene Glycol/Electrolytes (Miralax*) 17 gm PO DAILY PRN PRN Reason: Constipation Pregabalin (Lyrica Cap(*)) 100 mg PO BID [facility] Last Admin: 10/03/18 21:39 Dose: 100 mg Terazosin HCl (Hytrin Cap*) 1 mg PO BEDTIME [facility] Last Admin: 10/03/18 21:40 Dose: 1 mg Tramadol HCl (Ultram*) 50 mg PO Q6H PRN PRN Reason: PAIN Allergies/Intolerances: adhesive, latex, niacin Social History: No tobacco. Occasional beer. Retired. Family History: DM, HTN Review of Systems: As above. OBJECTIVE: Temp Pulse Resp BP Pulse Ox 98.0 F 69 18 137/44 98 10/04/18 03:26 10/04/18 03:26 10/04/18 05:43 10/04/18 03:26 10/04/18 03:26 General: alert, pleasant, oriented, no distress ENT: neck supple, no thyromegaly, no bruit is heard Chest: CTAB, no wheezing or crackles CV: RRR, no murmur Abdomen: soft, non-tender Extremities: no edema, distal pulses intact Skin: warm, dry, no rash Neuro: grossly intact motor/sensory in extremities Psych: restricted affect, pleasant Labs: 10/03/18 08:43 299 10/03/18 23:44 421 Hgb 10.7 g/dL (14.0-18.0) L 10/04/18 06:03 Hct 31 % (42-52) L 10/04/18 06:03 Plt Count 193 10^3/uL (150-450) 10/04/18 06:03 MPV 11.4 fL (7.4-10.4) H 10/04/18 06:03 Sodium 131 mmol/L (135-145) L 10/04/18 06:03 Potassium 4.8 mmol/L (3.5-5.0) 10/04/18 06:03 Chloride 99 mmol/L (101-111) L 10/04/18 06:03 Carbon Dioxide 22 mmol/L (22-32) 10/04/18 06:03 Anion Gap 10 mmol/L (2-11) 10/04/18 06:03 BUN 37 mg/dL (6-24) H 10/04/18 06:03 Creatinine 1.39 mg/dL (0.67-1.17) H 10/04/18 06:03 Est GFR ( Amer) 61.3 (>60) 10/04/18 06:03 Est GFR (Non-Af Amer) 50.7 (>60) 10/04/18 06:03 BUN/Creatinine Ratio 26.6 (8-20) H 10/04/18 06:03 Glucose 298 mg/dL (70-100) H 10/04/18 06:03 POC Glucose (mg/dL) 319 mg/dL (70-100) H 10/04/18 03:23 Glucose Meter Confirm 462 mg/dL (70-100) H 10/03/18 20:59 Calcium 8.6 mg/dL (8.6-10.3) 10/04/18 06:03
[2018-10-04] MEDS ORDERED: Insulin NPH(*) 1 UNITS UNIT SUBCUT ONE (08:28)
[2018-10-04] MEDS ORDERED: Insulin GLARGINE(*) 1 UNITS UNIT SUBCUT ONE (08:39)
[2018-10-04] MEDS ORDERED: Dextrose 50% Syringe 50 ML* 25 GM/50 ML SYRINGE IV PUSH PRN (08:39)
[2018-10-04] MEDS ORDERED: Insulin REGULAR(*) 1 UNITS UNIT SUBCUT ONE (08:46)
[2018-10-04] MEDS ORDERED: Insulin GLARGINE(*) 1 UNITS UNIT ONE (08:46)
[2018-10-04] MEDS: Pregabalin CAP(*) 100 MG PO SCH ×2 (09:11→21:08)
[2018-10-04] MEDS: Ezetimibe TAB* 10 MG PO SCH (09:11)
[2018-10-04] MEDS: Metoprolol Succinate XL TAB* 25 MG PO SCH (09:12)
[2018-10-04] MEDS: Finasteride TAB* 5 MG PO SCH (09:12)
[2018-10-04] MEDS: Docusate CAP* 100 MG PO SCH ×2 (09:12→21:07)
[2018-10-04] MEDS: Apixaban* 2.5 MG TAB PO SCH ×2 (09:12→21:07)
[2018-10-04] MEDS: Lisinopril TAB* 10 MG PO SCH (09:12)
[2018-10-04] MEDS: Citalopram TAB* 20 MG PO SCH (09:13)
[2018-10-04] MEDS: Pentoxifylline CR TAB* 400 MG PO SCH (09:14)
[2018-10-04] MEDS: Clopidogrel TAB* 75 MG PO SCH (09:14)
[2018-10-04] MEDS: Furosemide TAB* 40 MG PO SCH (09:14)
[2018-10-04] MEDS: Isosorbide Mononitrate ER TAB* 60 MG PO SCH (09:14)
[2018-10-04] MEDS: amLODIPine TAB* 5 MG PO SCH (09:15)
[2018-10-04] MEDS: COLESEVELAM 625 MG PO SCH ×2 (09:16→21:11)
[2018-10-04] MEDS: Magnesium Hydroxide LIQ* 30 ML UDC PO SCH ×2 (09:16→21:08)
[2018-10-04] MEDS: Insulin LISPRO* 1 UNITS UNIT SUBCUT SCH (09:50)
[2018-10-04] MEDS ORDERED: Insulin LISPRO* 1 UNITS UNIT SUBCUT SCH (11:30)
[2018-10-04] MEDS: Morphine INJ* 2 MG/ML 1 ML SYRINGE (TWO MG - NEW SYRINGE VERSION) IV PRN ×2 (11:31→16:39)
--- NOTE | 2018-10-04 11:32 | DS ---
Orthopedic Discharge Summary - Discharge Summary Date of Admission:10/03/18 Date of Discharge: 10/04/18 Date of Surgery: 10/03/18 Attending Orthopedic Provider: Dr. Lowe Pre-operative Diagnosis: Degenerative arthritis left knee Operative Procedure: Left total knee arthroplasty Disposition of Patient: home Condition of Patient: Stable History: IZA HERNÁNDEZ is a 68 year old M with years of increasingly severe left knee pain. Patient has failed conservative management and has elected to undergo a left total knee replacement Hospital Course: IZA was admitted to [facility] on 10/03/18. Patient underwent a left total knee arthroplasty without complication followed by a brief recovery in PACU and transfer to the Short Stay Surgical Unit in stable condition. Our hospitalist service, physical therapy and occupational therapy also participated in this patients care. Post-op day 1: patient was alert and in no acute distress. Dressing was clean, dry and intact. Operative extremity dorsiflexion and plantarflexion intact, sensation intact to light touch distally, DP2+. His dressing was changed, incision was clean, dry and intact. He was seen by endocronology, Dr. Dhillon as his glucose levels were elevated overnight. He is usually on a highly concentrated insulin pump at home which is not available in the hospital. His medications were adjusted. He is feeling asymptomatic. If sugars are running less than 350 this afternoon he may return home and restart his usual insulin regimen. Patient is orthopedically stable for discharge. Physical therapy goals were met. Home Medications Medication Instructions Recorded Confirmed Type Amlodipine Besylate [Norvasc] 10 mg PO QAM 09/20/18 10/03/18 History Ascorbic Acid TAB* [Vitamin C 500 mg PO QAM 09/20/18 10/03/18 History TAB*] Cholecalciferol TAB* [Vitamin D 1,000 unit PO QAM 09/20/18 10/03/18 History TAB*] Citalopram TAB* [Celexa TAB*] 20 mg PO QAM 09/20/18 10/03/18 History Clopidogrel TAB* [Plavix TAB*] 75 mg PO QAM 09/20/18 10/03/18 History Colesevelam HCl [Welchol] 3 tab PO BID 09/20/18 10/03/18 History Ezetimibe TAB* [Zetia TAB*] 10 mg PO QAM 09/20/18 10/03/18 History Fenofibrate [Tricor 160 MG] 160 mg PO QPM 09/20/18 10/03/18 History Finasteride TAB* [Proscar TAB*] 5 mg PO QAM 09/20/18 10/03/18 History Furosemide TAB* [Lasix TAB*] 1.5 tab PO QAM 09/20/18 10/03/18 History Insulin REGULAR(*) 09/20/18 History Isosorbide Mononitrate ER TAB* 60 mg PO QAM 09/20/18 10/03/18 History [Imdur ER TAB*] Lisinopril 40 mg PO QAM 09/20/18 10/03/18 History Metoprolol Succinate XL TAB* 25 mg PO QAM 09/20/18 10/03/18 History [Toprol XL TAB*] Multivitamin [Multiple Vitamins] 1 tab PO QAM 09/20/18 10/03/18 History Omeprazole 40 mg PO QPM 09/20/18 10/03/18 History Pentoxifylline CR TAB* [Trental CR 400 mg PO QAM 09/20/18 10/03/18 History TAB*] Pregabalin CAP(*) [Lyrica CAP(*)] 100 mg PO BID 09/20/18 10/03/18 History Rosuvastatin Calcium [Crestor] 10 mg PO QPM 09/20/18 10/03/18 History Spironolactone TAB* [Aldactone TAB 25 mg PO QAM 09/20/18 10/03/18 History 25 MG*] Sub-Q Insulin Device, 20 Unit SUBCUT 09/20/18 History [V-Go 20] Terazosin CAP* [Hytrin CAP*] 1 mg PO BEDTIME 09/20/18 10/03/18 History Tramadol HCl [Tramadol HCl ER] 300 mg PO QAM 09/20/18 10/03/18 History Ubidecarenone [Co Q-10] 100 mg PO QAM 09/20/18 10/03/18 History Apixaban* [Eliquis*] 2.5 mg PO BID #60 tab 10/04/18 Rx Docusate CAP* [Colace Cap*] 100 mg PO BID cap 10/04/18 Rx oxyCODONE/Acetamin 5/325 MG* 1 - 2 tab PO Q4H PRN #70 tab MDD 10 10/04/18 Rx [Percocet 5/325 TAB*] Discharge home this afternoon after PT Resume usual insulin regimen WBAT LLE Eliquis for DVT prophylaxis- should also remain on Plavix per Dr. Mynor Benitez for pain, both sent to [facility] pharmacy Follow up as scheduled 10/16
[2018-10-04] MEDS: Insulin REGULAR(*) 1 UNITS UNIT SUBCUT SCH ×5 (12:13→21:12)
[2018-10-04] MEDS ORDERED: Insulin GLARGINE(*) 1 UNITS UNIT SUBCUT SCH (21:00)
[2018-10-04] MEDS: Terazosin CAP* 1 MG PO SCH (21:07)
[2018-10-04] MEDS: Atorvastatin* 20 MG TAB PO SCH (21:07)
[2018-10-04] MEDS: Pantoprazole TAB * 40 MG TAB PO SCH (21:07)
[2018-10-05] MEDS: oxyCODONE/Acetamin 5/325 MG* TAB PO PRN ×2 (02:00→11:16)
[2018-10-05] MEDS: Acetaminophen TAB* 325 MG PO SCH (05:07)
[2018-10-05 05:42] LABS: Hematocrit 29 % (42-52); Hemoglobin 9.7 g/dL (14.0-18.0); Mean Platelet Volume 11.5 fL (7.4-10.4); Platelet Count 170 10^3/uL (150-450)
[2018-10-05 07:36] VITALS: BP 153/48
[2018-10-05] MEDS: Insulin REGULAR(*) 1 UNITS UNIT SUBCUT SCH ×2 (07:44→07:58)
[2018-10-05] MEDS ORDERED: Insulin REGULAR(*) 1 UNITS UNIT SUBCUT SCH (07:45)
[2018-10-05] MEDS: oxyCODONE TAB* 5 MG TAB PO PRN (07:56)
[2018-10-05] MEDS: amLODIPine TAB* 5 MG PO SCH (07:59)
[2018-10-05] MEDS: Apixaban* 2.5 MG TAB PO SCH (08:00)
[2018-10-05] MEDS: Clopidogrel TAB* 75 MG PO SCH (08:00)
[2018-10-05] MEDS: Citalopram TAB* 20 MG PO SCH (08:00)
[2018-10-05] MEDS: COLESEVELAM 625 MG PO SCH (08:01)
[2018-10-05] MEDS: Finasteride TAB* 5 MG PO SCH (08:02)
[2018-10-05] MEDS: Ezetimibe TAB* 10 MG PO SCH (08:02)
[2018-10-05] MEDS: Docusate CAP* 100 MG PO SCH (08:02)
[2018-10-05] MEDS: Furosemide TAB* 40 MG PO SCH (08:03)
[2018-10-05] MEDS: Lisinopril TAB* 10 MG PO SCH (08:04)
[2018-10-05] MEDS: Isosorbide Mononitrate ER TAB* 60 MG PO SCH (08:04)
[2018-10-05] MEDS: Magnesium Hydroxide LIQ* 30 ML UDC PO SCH (08:05)
[2018-10-05] MEDS: Pregabalin CAP(*) 100 MG PO SCH (08:05)
[2018-10-05] MEDS: Metoprolol Succinate XL TAB* 25 MG PO SCH (08:05)
[2018-10-05] MEDS: Pentoxifylline CR TAB* 400 MG PO SCH (08:06)
--- NOTE | 2018-10-05 08:21 | PN ---
Progress Note - Progress Note Date of Service: 10/05/18 SOAP: Subjective: resting comfortably in bed, moderate complaints of knee pain Objective: Laboratory Last Values Hgb 9.7 g/dL (14.0-18.0) L 10/05/18 04:49 Hct 29 % (42-52) L 10/05/18 04:49 Plt Count 170 10^3/uL (150-450) 10/05/18 04:49 MPV 11.5 fL (7.4-10.4) H 10/05/18 04:49 Sodium 131 mmol/L (135-145) L 10/04/18 06:03 Potassium 4.8 mmol/L (3.5-5.0) 10/04/18 06:03 Chloride 99 mmol/L (101-111) L 10/04/18 06:03 Carbon Dioxide 22 mmol/L (22-32) 10/04/18 06:03 Anion Gap 10 mmol/L (2-11) 10/04/18 06:03 BUN 37 mg/dL (6-24) H 10/04/18 06:03 Creatinine 1.39 mg/dL (0.67-1.17) H 10/04/18 06:03 Est GFR ( Amer) 61.3 (>60) 10/04/18 06:03 Est GFR (Non-Af Amer) 50.7 (>60) 10/04/18 06:03 BUN/Creatinine Ratio 26.6 (8-20) H 10/04/18 06:03 Glucose 298 mg/dL (70-100) H 10/04/18 06:03 POC Glucose (mg/dL) 221 mg/dL (70-100) H 10/05/18 03:54 Glucose Meter Confirm 462 mg/dL (70-100) H 10/03/18 20:59 Calcium 8.6 mg/dL (8.6-10.3) 10/04/18 06:03 Vital Signs Temp Pulse Resp BP Pulse Ox 98.3 F 69 18 153/48 97 10/05/18 07:35 10/05/18 07:35 10/05/18 08:05 10/05/18 07:35 10/05/18 08:00 incision: c/d; dressing changed PE: able to dorsi flex/plantar flex, 2+ DP pulse, intact sensation Assessment: s/p left TKA Plan: 1) PT/OT-WBAT 2) Eliquis for DVT prophylaxis 3) home today, f/u with Mynor in 2 weeks
--- NOTE | 2018-10-05 11:12 | DS ---
Amended report to enter cosigning physician. DISCHARGE SUMMARY: DATE OF ADMISSION: 10/03/18 DATE OF DISCHARGE: 10/05/18 SURGEON: Rhina Lowe MD* (dictated by LEIGHTON Smith). PRINCIPAL DIAGNOSIS: Left knee osteoarthritis. DISCHARGE DIAGNOSES: Left knee osteoarthritis. DISCHARGE DISPOSITION: Discharged to home in stable condition. HISTORY OF PRESENT ILLNESS: Mr. Baum is a 68-year-old gentleman with severe end-stage osteoarthritis of the left knee, failed conservative treatment and elected to proceed with a left total knee arthroplasty. HOSPITAL COURSE: He was admitted electively to the hospital on 09/06/18 and underwent a left total knee arthroplasty, he tolerated the procedure well. Postoperatively, he was placed on Eliquis twice a day for DVT prophylaxis, Plavix was continued daily. On postoperative day #1, his H and H was 10 and 31 , on postoperative day #2 9.7 and 29. His hospital course was unremarkable and he had daily improvements with physical therapy and was ambulating well with a walker. At the time of discharge, he was afebrile and his vital signs were stable. PHYSICAL EXAM UPON DISCHARGE: He was afebrile. His vital signs were stable. His wound was clean and dry. He was able to dorsiflexion and plantarflex, he had a 2+ dorsalis pedis pulses, intact sensation. He was ambulating with a walker. DISCHARGE MEDICATIONS: 1. Eliquis 2.5 mg twice a day for 30 days. 2. Percocet 5/325 1 to 2 tabs every 4 to 6 hours as needed for pain. 3. Colace 100 mg 2 to 3 tabs daily as needed for constipation. 4. Norvasc 10 mg a day. 5. Lipitor 20 mg q.h.s. 6. Celexa 20 mg a day. 7. Plavix 75 mg a day. 8. Welchol twice a day. 9. Zetia 10 mg a day. 10. TriCor 160 mg q.h.s. 11. Finasteride 5 mg a day. 12. Lasix 60 mg a day. 13. Lantus 70 units daily. 14. Lisinopril 40 mg a day. DISCHARGE INSTRUCTIONS: He was discharged to home. He was given Percocet for pain. He was asked to take Eliquis twice a day for DVT prophylaxis as well as his Plavix daily. He is weightbearing as tolerated and he will follow up with Dr. Lowe in clinic in 2 weeks. LEIGHTON SMITH [id number]/CPS #: [id number]
== END 2018-10-05 11:30 | disposition home or self-care (01) ==
LOC: AA 07:58 → INTOOBSV 07:58 → SSU 17:15
PROVIDERS: ADMIT Orthopaedic Surgery Adult Reconstructive Orthopaedic Surgery; ATTEND Orthopaedic Surgery Adult Reconstructive Orthopaedic Surgery
PROC: 0SRD0J9 Replacement of Left Knee Joint with Synthetic Substitute, Cemented, Open Approach (ICD-10-PCS; principal; 2018-10-03 11:00)
DX: M17.12 Unilateral primary osteoarthritis, left knee (principal); E11.21 Type 2 diabetes mellitus with diabetic nephropathy; E11.65 Type 2 diabetes mellitus with hyperglycemia; I25.10 Atherosclerotic heart disease of native coronary artery without angina pectoris; E78.00 Pure hypercholesterolemia, unspecified; M79.7 Fibromyalgia; Z79.01 Long term (current) use of anticoagulants; Z79.899 Other long term (current) drug therapy; Z79.4 Long term (current) use of insulin
CPT/HCPCS: 36415; 80048; 82947; 85014; 85018; 85049; 88305; 88311; 96374; 96375; 96376; A9270-GY; C1776; G0378; G8978-GP-CJ; G8979-GP-CI; J0690; J1100; J1170; J1885; J2250; J2270; J2704; J2795; J3010; J3490